=== PATIENT | male | born 1975 | race Caucasian/White ===

== ENCOUNTER 2019-03-15 03:47 | Emergency (ER) | payer BC ==
[~2019-03-15] VITALS: Ht 157.5 cm; Wt 63.5 kg
[2019-03-15 03:57] VITALS: BP_SYST 167
[2019-03-15] MEDS ORDERED: MORPHINE 4 MG/ML INJ. SYRINGE IVP ONE (04:15)
[2019-03-15] MEDS ORDERED: ONDANSETRON HCL 4 MG/2 ML VIAL IVP PRN (04:15)
[2019-03-15] MEDS ORDERED: MORPHINE 2 MG/ML INJ. SYRINGE IVP PRN (04:15)
[2019-03-15] MEDS ORDERED: amLODIPine BESYLATE 5 MG TABLET PO ONE (04:15)
[2019-03-15] MEDS ORDERED: D5NS 1,000 ML IV SCH (04:15)
[2019-03-15 04:35] VITALS: BP_SYST 167
[2019-03-15] MEDS ORDERED: PIPERACILLIN/TAZO 3.375 GM in NS 50 ML IV SCH (12:00)
== END 2019-03-15 04:35 | disposition home or self-care (01) ==
LOC: SED 03:47
DX: T78.3XXA Angioneurotic edema, initial encounter (principal); I10 Essential (primary) hypertension; X58.XXXA Exposure to other specified factors, initial encounter
CPT/HCPCS: 99283

== ENCOUNTER 2019-09-18 04:25 | Emergency (ER) | payer BC ==
[~2019-09-18] VITALS: Ht 160 cm; Wt 63.5 kg
[2019-09-18 04:50] VITALS: BP_SYST 177
--- NOTE | 2019-09-18 04:50 | NUR ---
Night sweats, chills, cough, feeling hot, body aches, nausea, poor appetite since last Wednesday. PMD on Wednesday RX Promethazine-DM. Pt takes Amlodipine 10 mg q day at 0500, but did not take this AM. B/P 177/125. Denies c/o H/A or C/P. Dr. Leahy notified. Pt also HIV+ and takes Triumeq q day. Pt states that he hasn't had labs for CD4 or Viral load in 2 years. Pt educated on importance of regular check ups, compliance with all prescribed medications, and labs. Pt verbalizes understanding.
--- NOTE | 2019-09-18 04:50 | NUR ---
Pt placed to ER bed 04, to gown, report given to AUDREY Lynn.
--- NOTE | 2019-09-18 05:10 | NUR ---
Dr. Leahy at bedside.
[2019-09-18] MEDS ORDERED: NACL 0.9% 1,000 ML IV ONE (05:40)
--- NOTE | 2019-09-18 05:43 | NUR ---
X-ray at bedside.
--- NOTE | 2019-09-18 05:54 | NUR ---
GAUGE 18 IV LINE ESTABLISHED TO THE LEFT AC. BLOOD ALSO DRWAN, INFLUENZA A AND B SW3AB COLLECTED AND HANDED OVER TO THE LAB.PACKING INSPECTOR. NS 1 LITER BOLUS GIVEN ORDERED.
[2019-09-18 06:27] LABS: CALCIUM 7.7 mg/dL (8.4-11.0); CREATININE 1.16 mg/dL (0.55-1.30); POTASSIUM 3.4 mmol/L (3.5-5.1)
[2019-09-18 06:30] LABS: BASOPHILS % (AUTO) 0.4 % (0.0-2.0); EOSINOPHILS # (AUTO) 0.1 K/uL (0.0-0.4); EOSINOPHILS % (AUTO) 1.6 % (0.0-4.0); HEMATOCRIT 38.4 % (36-54); HEMOGLOBIN 12.8 g/dL (14.0-18.0); LYMPHOCYTES # (AUTO) 1.6 K/uL (1.0-5.5); LYMPHOCYTES % (AUTO) 26.5 % (20.5-51.5); MEAN CORPUSCULAR HEMOGLOBIN 28 pg (27-31); MEAN CORPUSCULAR HGB CONC 33 % (32-36); MEAN CORPUSCULAR VOLUME 84 fL (79.0-98.0); MONOCYTES # (AUTO) 0.5 K/uL (0.0-1.0); MONOCYTES % (AUTO) 8.4 % (1.7-9.3); NEUTROPHILS # (AUTO) 3.9 K/uL (1.8-7.7); NEUTROPHILS % (AUTO) 63.1 % (40.0-70.0); PLATELET COUNT (AUTO) 271 K/uL (130-430); RED BLOOD CELL COUNT(AUTO) 4.57 MIL/uL (4.2-6.2); RED CELL DISTRIBUTION WIDTH 15.6 % (9.0-15.0); WHITE BLOOD COUNT (AUTO) 6.2 K/uL (4.8-10.8)
[2019-09-18 06:32] LABS: ALBUMIN 3.1 g/dL (3.4-4.8); TOTAL BILIRUBIN 0.3 mg/dL (0.0-1.0)
--- NOTE | 2019-09-18 07:11 | NUR ---
ENDORSED CARE TO JULIANNE EVNTURA.
--- NOTE | 2019-09-18 07:12 | NUR ---
Report received from [facility] shift nurse. Pt is in stable condition
[2019-09-18 07:40] VITALS: BP_SYST 160
--- NOTE | 2019-09-18 07:41 | NUR ---
Patient given written and verbal discharge instructions and verbalizes understanding. ER MD discussed with patient the results and treatment provided. Patient in stable condition. ID arm band removed. IV catheter removed intact and dressing applied, no active bleeding.Patient educated on pain management and to follow up with PMD. Pain Scale 0/10. Opportunity for questions provided and answered. Medication side effect fact sheet provided.
== END 2019-09-18 07:40 | disposition home or self-care (01) ==
LOC: SED 04:25
DX: J10.1 Influenza due to other identified influenza virus with other respiratory manifestations (principal); I10 Essential (primary) hypertension; M67.431 Ganglion, right wrist; F17.200 Nicotine dependence, unspecified, uncomplicated; Z79.899 Other long term (current) drug therapy; Z88.8 Allergy status to other drugs, medicaments and biological substances
CPT/HCPCS: 36415; 71045; 80053; 85025; 86710; 99284; J7030

== ENCOUNTER 2022-12-05 07:08 | Emergency (ER) | payer BC ==
[~2022-12-05] VITALS: Ht 160 cm; Wt 68.0 kg
[2022-12-05 07:31] VITALS: BP_SYST 168
[2022-12-05] MEDS ORDERED: IBUP-1971 PO (08:19)
[2022-12-05 08:25] VITALS: BP_SYST 145
== END 2022-12-05 08:25 | disposition home or self-care (01) ==
LOC: SED 07:08
DX: R07.89 Other chest pain (principal); I10 Essential (primary) hypertension; Z88.8 Allergy status to other drugs, medicaments and biological substances; Z79.899 Other long term (current) drug therapy
CPT/HCPCS: 93005; 99283